=== PATIENT | male | born 1940 | race Caucasian/White ===

== ENCOUNTER 2017-07-25 08:00 | Outpatient (RCR) | payer MEDICARE, OTHER ==
[~2017-07-25] VITALS: Ht 190.5 cm; Wt 136.3 kg
[~2017-07-25 08:00] MED LIST: ASCO500T PO; ASP81 PO; ASPI81TA94 PO; AZIT-17 PO; BIPAP; BLOO-1511 XX; CHOL10005 PO; CHOL400C10 PO; DILT180C73 PO; HCTZ25 PO; INSU100I30 SQ; INSU100I35 SQ; LIS20 PO; LISI-355 PO; LOVA20TA99 PO; MET500 PO; METF-409 PO; METF-420 PO; MULT-820 PO; NOVOLINRPT IJ; NPH,100V12 SQ; NYST15CR33 TP; OMEG-96 PO; OXYB5POW PO; OXYB5TAB86 PO; OXYC-378 PO; OXYGENHOME INH; PEN1DIS. MC; PER PO; PIOG15TA66 PO; ROBC PO; ROSI2TAB11 PO; SIMV-44 PO; SIMV-49 PO; VITA-195 PO; WARF-12 PO; WARF2TAB74 PO; [UNRECOGNIZED DRUG - CODE] PO; [UNRECOGNIZED DRUG - CODE] SQ
--- NOTE | 2017-07-25 15:48 | EKG ---
FACILITY: [facility] [place] PATIENT NAME: SARI TOBIAS : [id number] MR: [id number] V: [id number] EXAM DATE: ORDERING PHYSICIAN: NOLAN PERRY TECHNOLOGIST: RAY Motta Reason : balanoposthitis Blood Pressure : / mmHG Vent. Rate : 057 BPM Atrial Rate : 416 BPM P-R Int : 000 ms QRS Dur : 128 ms QT Int : 466 ms P-R-T Axes : 000 -23 054 degrees QTc Int : 453 ms Appears to be sinus rhythm with first degree AV block Right bundle branch block Diffuse ST-T abnormalities Abnormal ECG No previous ECGs available Confirmed by ANIRUDH DE SANTIAGO ([id number]) on 07/27/2017 3:30:54 PM Referred By: VICKY Confirmed By:ANIRUDH DE SANTIAGO
--- NOTE | 2017-07-25 16:18 | RADIOLOGY IMAGING REPORT ---
[facility] PATIENT NAME: Peter Wray : 1940 MR: [id number] V: [id number] EXAM DATE: ORDERING PHYSICIAN: NOLAN PERRY TECHNOLOGIST: Location: [facility] Patient: Peter Wray : 1940 Visit/Account:[id number] Date of Sevice: 07/25/2017 Exam type: CHEST PA AND LAT History: HISTORY OF PROSTATE CA/ SLEEP APNEA WITH BIPAP AND O2 Comparison: October 09, 2007. Findings: There is mild hyperinflation lung saenz with flattening the hemidiaphragms. There is no evidence of acute appearing infiltrates, pleural effusions or pulmonary edema. Cardiac silhouette is normal in size. There are mild to moderate spondylotic changes of the thoracic spine. IMPRESSION: 1. Mild chronic hyperinflation of the lung saenz. No acute cardiopulmonary process is seen Report Dictated By: Miriam Cuadra MD at 07/25/2017 4:12 PM Report E-Signed By: Miriam Cuadra MD at 07/25/2017 4:13 PM WSN:[email or web address]
[2017-07-26 09:53] LABS: PLATELET COUNT, AUTOMATED 254 K/uL (150-450)
[2017-07-27] MEDS ORDERED: WARF5TAB23 PO (09:43)
[2017-08-01] MEDS ORDERED: LEVOFLOXACIN/D5W*500 MG/100 ML 100 ML IVPB ONE (07:55)
[2017-08-01] MEDS ORDERED: MIDAZOLAM 2 MG/2 ML VIAL IVP PRN (07:55)
[2017-08-01] MEDS ORDERED: LIDOCAINE/SOD BICARB 8.4% SYR ID ONE (07:55)
[2017-08-01] MEDS ORDERED: FAMOTIDINE 20 MG TAB PO ONE (07:55)
[2017-08-01] MEDS ORDERED: NORMOSOL R SOLN(*) 1000 ML BAG 1,000 ML IV PRN (07:55)
== END 2017-08-15 ==
LOC: LAB 08:00 → EDSTATUS 08-01 08:55
PROVIDERS: ATTEND Urology
DX: Z01.812 Encounter for preprocedural laboratory examination (principal); Z01.810 Encounter for preprocedural cardiovascular examination; Z01.818 Encounter for other preprocedural examination; R94.31 Abnormal electrocardiogram [ECG] [EKG]; R82.99 Other abnormal findings in urine
CPT/HCPCS: 36415; 71046; 81001; 82040; 82247; 82310; 82374; 82435; 82565; 82947; 84075; 84132; 84153; 84155; 84295; 84450; 84460; 84520; 85025; 87088; 93005

== ENCOUNTER → 2017-08-10 | Outpatient (CLI) | payer MEDICARE, OTHER ==
[~2017-08-10] MED LIST changes: +WARF5TAB23 PO
[2017-08-10 10:34] LABS: PLATELET COUNT, AUTOMATED 212 K/uL (150-450)
== END ==
LOC: LAB 10:07
PROVIDERS: ATTEND Internal Medicine
DX: I10 Essential (primary) hypertension (principal); E11.65 Type 2 diabetes mellitus with hyperglycemia; R35.0 Frequency of micturition; R39.15 Urgency of urination; R68.83 Chills (without fever); D72.829 Elevated white blood cell count, unspecified
CPT/HCPCS: 36415; 82040; 82247; 82310; 82374; 82435; 82565; 82947; 84075; 84132; 84155; 84295; 84450; 84460; 84520; 85025; 87088

== ENCOUNTER → 2017-08-16 | Outpatient (CLI) | payer MEDICARE, OTHER | LOC: LAB 14:04 | PROVIDERS: ATTEND Internal Medicine | DX: E11.65 Type 2 diabetes mellitus with hyperglycemia (principal); Z79.4 Long term (current) use of insulin | CPT/HCPCS: 36415; 82040; 82247; 82310; 82374; 82435; 82565; 82947; 84075; 84132; 84155; 84295; 84450; 84460; 84520 ==

== ENCOUNTER → 2017-08-22 | Outpatient (CLI) | payer MEDICARE, OTHER ==
--- NOTE | 2017-08-23 17:38 | RADIOLOGY IMAGING REPORT ---
FACILITY: [facility] PATIENT NAME: SARI TOBIAS : [id number] MR: [id number] V: [id number] EXAM DATE: [id number] ORDERING PHYSICIAN: NEELA PEREZ TECHNOLOGIST: Natacha Boyce EXAMINATION:TWO-DIMENSIONAL ECHOCARDIOGRAPH REASON:AFIB/JUNCTIONAL ESCAPE RHYTHM 2D Measurements (normal values in centimeters) LV endLV endRV endVent.LV PostAorticLeftPercent DiastolicSystolicDiastolicSeptumWallRootAtriumShortening (3.5-5.7)(0.9-2.6)(0.6-1.1)(0.6-1.1)(2.0-3.7)(1.9-4.0)(25-35%) [id number]% STROKE VOLUME: 84ml ESTIMATED EJECTION FRACTION:59% PARASTERNAL LONG AXIS: Overall left ventricular systolic function appears to be normal. Left ventricle appears to be the upper range of normal in size. The right ventricle is enlarged as well as the left atrium. There is mild concentric left ventricular thickening. Minimal mitral annular calcification. Aortic valve also appears to be mildly thickened. The right ventricle appears to contract normally. Color examination of the valves in this view reveals a trace of mitral & tricuspid & aortic insufficiency present. PARASTERNAL SHORT AXIS: Again overall left ventricular systolic function appears to be normal. No specific wall motion abnormalities are noted. Aortic valve is trileaflet in configuration with aortic sclerosis. Color examination of the pulmonic valve reveals a trace of pulmonic insufficiency. There is also a trace of aortic insufficiency present. Aortic valve area was measured at 2.5cm2 with a mean pressure gradient across the valve of 11mm Hg & a dimensionless index of .5. The tricuspid regurgitation Vmax measured 1.9cm/sec. Left atrial volume is increased at 36ml/m2. The right atrial volume is measured within normal ranges at 19ml/m2. Borderline concentric left ventricular thickening is noted. APICAL FOUR AND TWO CHAMBER: SUBCOSTAL VIEW: No pericardial effusion was noted. No atrioseptal or ventriculoseptal defects were appreciated. Patient appears to be in sinus rhythm throughout this examination. Doppler examination of the mitral valve in diastole does reveal a normal pattern but there is reversal with Valsalva maneuver. The medial & lateral E Prime velocities are decreased. OVERALL IMPRESSION: 1. Normal left ventricular ejection fraction of approximately 59% with a mild to borderline moderate decrease in diastolic function. 2. Mild concentric left ventricular thickening but no evidence for any outflow tract obstruction. 3. Borderline enlargement of the left ventricle, mild enlargement of the right ventricle & moderate enlargement of the left atrium. The right atrium appears to be normal in size. 4. Aortic sclerosis but no stenosis. There is a trace of aortic insufficiency. 5. Trace of mitral, tricuspid & pulmonic insufficiency with estimated right ventricular systolic pressures within normal ranges at 24mm Hg. The mitral valve area was measured within normal ranges at 2.6cm2 wnl. There is minimal mitral annular calcification. Dictated by: Hernán Judge M.D. on 08/23/2017 at 10:04 Transcribed by: VINEET on 08/23/2017 at 15:21 Approved by: Hernán Judge M.D. on 08/23/2017 at 17:36 [facility]
== END ==
LOC: US 08-02 01:50
PROVIDERS: ATTEND Internal Medicine
DX: I50.30 Unspecified diastolic (congestive) heart failure (principal); I51.7 Cardiomegaly; I25.10 Atherosclerotic heart disease of native coronary artery without angina pectoris; I35.1 Nonrheumatic aortic (valve) insufficiency; I34.0 Nonrheumatic mitral (valve) insufficiency; I07.1 Rheumatic tricuspid insufficiency; I37.1 Nonrheumatic pulmonary valve insufficiency
CPT/HCPCS: 93306

== ENCOUNTER → 2017-08-24 | Outpatient (CLI) | payer MEDICARE, OTHER | LOC: LAB 13:32 | PROVIDERS: ATTEND Internal Medicine | DX: E11.65 Type 2 diabetes mellitus with hyperglycemia (principal) | CPT/HCPCS: 36415; 82040; 82247; 82310; 82374; 82435; 82565; 82947; 84075; 84132; 84155; 84295; 84450; 84460; 84520 ==

== ENCOUNTER → 2017-08-31 | Outpatient (CLI) | payer MEDICARE, OTHER ==
--- NOTE | 2017-08-31 09:35 | RADIOLOGY IMAGING REPORT ---
FACILITY: [facility] [place] PATIENT NAME: Peter Wray : 1940 MR: [id number] V: [id number] EXAM DATE: ORDERING PHYSICIAN: NEELA PEREZ TECHNOLOGIST: Location: [facility] Patient: Peter Wray : 1940 Visit/Account:[id number] Date of Sevice: 08/31/2017 LIVER HISTORY: elevated LFT COMPARISON: None. FINDINGS: Gallbladder: There are multiple mobile gallstones present. The gallbladder wall measures 2.8 mm in t hickness. There is a positive Travis sign by technologist notation Liver: Liver is enlarged measuring 20.7 cm in length. There is increased echogenicity throughout tony er which can be seen with fatty infiltration or other infiltrative process. This slightly lobular co ntour to the liver Common duct: Normal, 5.4 mm diameter. Pancreas: Appears heterogeneous and is partially obscured by bowel gas Right kidney: Right kidney measures 14.4 cm in length with no evidence of hydronephrosis. Is a 3.1 c m cyst along the lateral aspect Upper abdominal aorta and IVC: Patent. Ascites: None visualized. IMPRESSION: Hepatomegaly with increased echogenicity throughout liver which can be seen with fatty infiltration o r other infiltrative process Cholelithiasis and a positive Travis sign although no evidence of gallbladder wall thickening or bili teisha ductal dilatation 3.1 cm right renal cyst Pancreas appears slightly heterogeneous Report Dictated By: Miriam Cuadra MD at 08/31/2017 9:27 AM Report E-Signed By: Miriam Cuadra MD at 08/31/2017 9:31 AM WSN:[email or web address]
== END ==
LOC: US 01:05
PROVIDERS: ATTEND Internal Medicine
DX: K80.20 Calculus of gallbladder without cholecystitis without obstruction (principal); R19.8 Other specified symptoms and signs involving the digestive system and abdomen; K76.0 Fatty (change of) liver, not elsewhere classified; R16.0 Hepatomegaly, not elsewhere classified; Q61.01 Congenital single renal cyst
CPT/HCPCS: 76705

== ENCOUNTER → 2017-10-24 | Outpatient (CLI) | payer MEDICARE, OTHER ==
[~2017-10-24] MED LIST changes: +NOVOLINRPT SUBQ; +PIOG15TA2 PO; -PIOG15TA66 PO
[2017-10-24 14:13] LABS: PLATELET COUNT, AUTOMATED 215 K/uL (150-450)
== END ==
LOC: LAB 13:53
PROVIDERS: ATTEND Pharmacist Pharmacotherapy
DX: E11.65 Type 2 diabetes mellitus with hyperglycemia (principal); M79.1 Myalgia; I10 Essential (primary) hypertension
CPT/HCPCS: 36415; 82040; 82247; 82310; 82374; 82435; 82565; 82947; 83036; 84075; 84132; 84155; 84295; 84450; 84460; 84520; 85025; 86140

== ENCOUNTER → 2017-11-30 | Outpatient (CLI) | payer MEDICARE, OTHER ==
[~2017-11-30] MED LIST changes: +BLOO-1511 MC; +ERGO500037 PO; +METF-421 PO; -PIOG15TA2 PO; +PIOG15TA67 PO
== END ==
LOC: LAB 13:55
PROVIDERS: ATTEND Pharmacist Pharmacotherapy
DX: I10 Essential (primary) hypertension (principal)
CPT/HCPCS: 36415; 82310; 82374; 82435; 82565; 82947; 84132; 84295; 84520

== ENCOUNTER → 2017-12-19 | Outpatient (CLI) | payer MEDICARE, OTHER | LOC: LAB 09:47 | PROVIDERS: ATTEND Urology | DX: N47.6 Balanoposthitis (principal); R82.79 Other abnormal findings on microbiological examination of urine | CPT/HCPCS: 81001; 87088 ==

== ENCOUNTER 2017-12-22 01:51 | Observation (INO) | payer MEDICARE, OTHER ==
--- NOTE | 2017-12-21 18:54 | HISTORY AND PHYSICAL ---
DATE OF ADMISSION: December 22, 2017 CHIEF COMPLAINT Phimosis and irritation of foreskin. HISTORY OF PRESENT ILLNESS Patient is a 77-year-old white male who presented to the Urology Clinic with a several month history of increasing irritation at the foreskin with difficulty retracting and associated cracking and bleeding. Physical examination in the office revealed a moderately tight phimotic foreskin with some BXO changes around the end of the foreskin as well as some erythematous changes to the glans. The patient apparently has failed topical therapy over the past several months from another physician and desires circumcision. Also discussed we may perform a biopsy of any abnormal areas to rule out CIS. PAST MEDICAL HISTORY * History of prostate cancer. * AFib with right bundle-branch block. * Type 2 diabetes. * Hypertension. * Obstructive sleep apnea. PAST SURGICAL HISTORY * Radical retrograde prostatectomy. * Inflatable penis prosthesis. * Total knee replacement. * L-spine discectomy. * Lap-Band surgery. ALLERGIES PENICILLIN and SULFA. CURRENT MEDICATIONS * Diltiazem. * Multivitamins. * Insulin. * Lisinopril. * Hydrochlorothiazide. * Metformin. * Oxygen. * Warfarin, which has been held for five days. SOCIAL HISTORY Patient lives in [place], [place], and is single. He denies illicit drug use. FAMILY HISTORY Noncontributory. REVIEW OF SYSTEMS Patient denies chest pain, shortness of breath, nausea, vomiting, fever, chills , gross hematuria, or liver disease. PHYSICAL EXAMINATION GENERAL: Patient is a well-developed, slightly obese, white male in no acute distress. HEENT: Normocephalic, atraumatic. CHEST: Clear to auscultation bilaterally. CARDIOVASCULAR: Regular rate and rhythm. ABDOMINAL: Soft, nontender. No masses are palpated. GENITOURINARY: Deferred to the OR. EXTREMITIES: Without clubbing, cyanosis, or edema. NEUROLOGIC: Nonfocal. IMPRESSION A 77-year-old white male with history of prolonged irritation of the foreskin with phimosis. PLAN We will perform adult circumcision with possible biopsy. [facility]
[2017-12-22] VITALS (13 sets, daily range): BP systolic 122–155; BP diastolic 63–96; Ht 190.5 cm; Wt 137.6 kg
[~2017-12-22] VITALS: Ht 190.5 cm; Wt 137.6 kg
[2017-12-22 06:20] LABS: PLATELET COUNT, AUTOMATED 209 K/uL (150-450)
[2017-12-22 06:45] LABS: INR 1.11
[2017-12-22] MEDS ORDERED: NORMOSOL R SOLN(*) 1000 ML BAG 1,000 ML IV PRN (06:45)
[2017-12-22] MEDS ORDERED: LEVOFLOXACIN/D5W*500 MG/100 ML 100 ML IVPB ONE (06:45)
[2017-12-22] MEDS ORDERED: LIDOCAINE/SOD BICARB 8.4% SYR ID ONE (06:45)
[2017-12-22] MEDS ORDERED: FAMOTIDINE 20 MG TAB PO ONE (06:45)
[2017-12-22] MEDS ORDERED: MIDAZOLAM 2 MG/2 ML VIAL IVP PRN (06:45)
[2017-12-22] MEDS ORDERED: ROPIVACAINE 0.2% 20 ML VIAL ONE (07:38)
[2017-12-22] MEDS ORDERED: BACITRACIN OINT 15 GM TUBE TP ONE (07:38)
[2017-12-22] MEDS ORDERED: fentaNYL CITR 100 MCG/2 ML AMP ONE ×3 (07:46→09:19)
[2017-12-22] MEDS ORDERED: LIDOCAINE MPF 1% 5 ML VIAL ONE (07:47)
[2017-12-22] MEDS ORDERED: PROPOFOL EMUL(*) 10MG/ML 20 ML 40 ML ONE (07:47)
[2017-12-22] MEDS ORDERED: ONDANSETRON 4 MG/2 ML VIAL ONE (07:47)
[2017-12-22] MEDS ORDERED: MINERAL OIL LIGHT 10 ML VIAL ONE (08:51)
[2017-12-22] MEDS ORDERED: KETOROLAC 30 MG/ML VIAL ONE (08:53)
[2017-12-22] MEDS ORDERED: IBUPROFEN 600 MG TAB PO PRN (10:00)
[2017-12-22] MEDS ORDERED: ZOLPIDEM TARTRATE 5 MG TAB PO PRN (10:00)
[2017-12-22] MEDS ORDERED: MAG HYD/AL HYD/SIMETH 30ML UDC PO PRN (10:00)
[2017-12-22] MEDS ORDERED: INSULIN HUM REG 100 UN/ML 3 ML VIAL SC PRN (10:45)
--- NOTE | 2017-12-22 11:15 | Hospitalist Consultation ---
History of Present Illness Requesting Physician Dr. Ambriz Reason for Consult Medical Management Chief Complaint s/p circumcision History of Present Illness He was admitted s/p circumcision. It is reported the surgery went well and without complication. History Problems: (1) Essential hypertension Status: Chronic (2) Uncontrolled type 2 diabetes mellitus with insulin therapy Status: Chronic (3) Atrial fibrillation by electrocardiogram Status: Chronic Home Meds Active Scripts Metformin Hcl (METFORMIN HCL) 1,000 Mg Tablet, 1 TAB PO BID, #180 TAB 5 Refills Prov:BORIS ABDI PHARMD 12/01/17 Insulin Regular, Human (NOVOLIN R) 100 Unit/1 Ml Vial, 21 UNIT SUBQ TID, #2 VIAL 11 Refills Inject 21 units approximately 30 minutes prior to each meal. Take three times daily. Prov:BORIS ABDI PHARMD 11/30/17 Nph, Human Insulin Isophane (NOVOLIN N) 100 Unit/1 Ml Vial, 148 UNIT SQ QDAY, # 5 VIAL 11 Refills 86 Units sq q am, 62 Units sq q pm Prov:BORIS ABDI PHARMD 11/30/17 Blood Sugar Diagnostic (GLUCOSE TEST STRIP) 1 Each Strip, 1 STRIP MC QDAY, #90 STRIP 4 Refills Prov:NEELA PEREZ MD 11/28/17 Ergocalciferol (Vitamin D2) (VITAMIN D2) 50,000 Unit Capsule, 1 CAP PO QWEEK, # 8 CAPSULE 0 Refills Prov:NEELA PEREZ MD 11/01/17 Warfarin Sodium (WARFARIN SODIUM) 5 Mg Tablet, 1.5 TAB PO QDAY, #45 TAB 11 Refills Take 1.5 tablets daily or as instructed based on INR. Prov:NEELA PEREZ MD 10/26/17 Lisinopril/Hydrochlorothiazide (LISINOPRIL-HCTZ 20-25 MG TAB) 1 Each Tablet, 0.5 TAB PO QAM, #90 TAB 4 Refills Prov:NEELA PEREZ MD 10/26/17 Diltiazem Hcl (DILTIAZEM 24HR ER) 180 Mg Cap.er.24h, 1 CAP PO QDAY, #90 CAP 4 Refills Prov:NEELA PEREZ MD 03/24/17 Syring W-Ndl,Disp,Insul,0.3ML (INSULIN SYRINGE) 1 Each Disp.syrin, 1 EACH SQ QDAY, #2 12 Refills Use twice daily with insulin injections. Patient needs 1cc syringes. 29-31 gauge acceptable. Prov:BORIS ABDI PHARMD 12/25/14 Reported Medications Oxygen (OXYGEN) Inha, 4 L INH HS, L with Bi-PAP 06/18/15 Discontinued Reported Medications Bipap Home (BIPAP HOME) Inha, HS with Bi-PAP 06/18/15 Discontinued Scripts Lovastatin (LOVASTATIN) 20 Mg Tablet, 1 TAB PO QDAY, #90 TAB 3 Refills Prov:NEELA PEREZ MD 05/25/17 Allergies: Coded Allergies: Penicillins (Verified Allergy, Intermediate, ITCHING FEET AND PALMS OF HANDS, 12/16/17) Sulfa (Sulfonamide Antibiotics) (Unverified Allergy, Intermediate, RASH, ) Patient History: Cervical cancer MOTHER (Bowel obstruction), , Age:81 Diabetes mellitus (DM) Sister (Diabetes Mellitus, Colon Cancer), , Age:75 FH: bowel obstruction MOTHER (Bowel obstruction), , Age:81 FH: breast cancer MOTHER (Bowel obstruction), , Age:81 Sister (Diabetes Mellitus, Colon Cancer), , Age:75 FH: cancer Sister (Diabetes Mellitus, Colon Cancer), , Age:75, Onset:74 ( metastatic) FH: colon cancer FH: liver cancer Sister FH: lung cancer Sister FH: myocardial infarction FATHER (DE), , Age:64 FH: skin cancer Hx Smoking: Yes (AGE 20-31 SMOKED AND CHEWED) Smoking Status: Former Smoker Exposure to Second Hand Smoke?: Yes Caffeine Intake: Coffee Caffeine/Cups Per Day: 1-2 Hx Alcohol Use: No Hx Substance Use Disorder: No Social Drug Use: Never History of IV Drug Use: No Review of Systems All Systems Reviewed/Normal: Yes, Except as Noted Exam Vital Signs Vital Signs Date Time Temp Pulse Resp B/P (MAP) Pulse Ox O2 Delivery O2 Flow Rate FiO2 12/22/17 10:00 72 20 93 12/22/17 06:20 Nasal Cannula 2.0 12/22/17 06:16 97.7 155/91 (112) General Appearance: Alert, Awake, No Acute Distress, Afebrile Neuro: No Gross deficits Cardiovascular: Regular Rate and Rhythm Respiratory: No Respiratory Distress, Clear to Auscultation GI: Abd Soft and Non-Tender Psych: Alert & Oriented X3, Appropriate Mood & Affect Medical Decision Making Data Points Result Diagram: 12/22/1760412/22/17604 Assessment and Plan Problems: (1) Uncontrolled type 2 diabetes mellitus with insulin therapy Status: Chronic Assessment & Plan: He is on chronic treatment with Metformin, NPH insulin and Regular insulin. His metformin will be held at this time. He has been restarted on half his NPH insulin dose and SS insulin level #2, along with ADA diet and AC /HS blood glucoses. (2) Atrial fibrillation by electrocardiogram Status: Chronic Assessment & Plan: He is on chronic treatment with diltiazem and warfarin. The warfarin should be restarted on 12/24 per patient. His diltiazem has been restarted with hold parameters. (3) Essential hypertension Status: Chronic Assessment & Plan: He is on chronic treatment with lisinopril and hydrochlorothiazide. His lisinopril has been restarted with hold parameters. Venous Thromboembolism Antithrombotics Is Pt On Any Antithrombotics?: No Prophylaxis Tx Contraindicated Pharmacological Contraindicati: Surgical Contraindication CHARLES CATALAN SENIOR QA ENGINEER Dec 22, 2017 11:15
--- NOTE | 2017-12-22 11:23 | OPERATIVE REPORT 1 ---
EVENT DATE: December 22, 2017 SURGEON: David Ambriz M.D. ANESTHESIOLOGIST: Aashish Finnegan M.D. ANESTHESIA: General. PREOPERATIVE DIAGNOSIS Phimosis with balanoposthitis. POSTOPERATIVE DIAGNOSIS Phimosis with balanoposthitis. PROCEDURE PERFORMED Adult circumcision with frenuloplasty. ESTIMATED BLOOD LOSS 5 mL. IV FLUIDS Crystalloids. DRAINS None. PATHOLOGY Foreskin for permanent analysis to pathology. COMPLICATIONS None. CONDITION The patient was taken to the recovery room awake and in stable condition. STATEMENT OF MEDICAL NECESSITY The patient is a 69-year-old white male with several medical issues who is status post penile prosthesis many yeas ago who recently developed increasing difficulty retracting his foreskin with irritation, cracking and bleeding. He has tried topical treatments without success and is now being brought to the operating room for planned adult circumcision with possible biopsy. Surgical risks and benefits were explained including bleeding, infection, recurrent scar formation, need for a secondary procedure and shortening of penile foreskin. DESCRIPTION OF PROCEDURE The patient was brought to the operating room. After general anesthetic was obtained, he was placed supine on the operating room table. The foreskin was manually retracted over the glans with significant difficulty. The inner table of the foreskin was whitish in appearance, consistent with BXO. He had extensive adhesions to the glans around the marshall and approximately 75% of the inner table of the foreskin. These were released manually. He also had significant adhesions around the ventral aspect of the frenulum, which were also released. At this point, a circumferential skin incision was made approximately 3-4 mm from the coronal sulcus with #15 blade knife. Following this, the foreskin was retracted distal to the normal anatomic position and the outer table also incised with the knife. These incisions were connected on the dorsal aspect and then the foreskin was removed circumferentially with electrocautery. Small bleeding vessels at the skin edge were controlled with electrocautery. The wound was irrigated with copious amounts of gentamicin irrigation. At this point, a frenuloplasty was performed with interrupted 4-0 Chromic to reconstruct a penile frenulum for a length of approximately 1 cm. The inner and outer tables of the peeled skin were then sutured with interrupted 4-0 Chromic stitches. Following this, antibiotic ointment was placed along the incision and glans and a roll of gauze was placed around the penis at the conclusion of the procedure. A penile block was not given secondary to his inflatable penile prosthesis. The patient was awakened in the operating room and taken to the recovery area in stable condition. The plan will be to keep the patient 23 hours secondary to his inability to have a ride or someone stay with him. We will plan to discharge him home in the morning on Levaquin, [place], Colace and Neosporin ointment. We will plan to see in Urology Clinic in four to six weeks. PAMELA
[2017-12-22] MEDS: NEOMYCIN/POLYMYX/BACITR OINT 1 PACKET TP SCH (20:51)
[2017-12-22] MEDS: DOCUSATE SODIUM 100 MG CAP PO SCH (20:52)
[2017-12-22] MEDS ORDERED: INSULIN HUM ISO(NPH) 100 UN/ML 3 ML VIAL SUBQ SCH (21:00)
[2017-12-23 00:47] VITALS: BP 157/74
[2017-12-23 03:04] VITALS: BP 128/65
[2017-12-23] MEDS ORDERED: LEVOFLOXACIN 500 MG TAB PO SCH (07:00)
[2017-12-23 08:20] VITALS: BP 147/81
[2017-12-23] MEDS: DOCUSATE SODIUM 100 MG CAP PO SCH (08:26)
[2017-12-23] MEDS ORDERED: DILTIAZEM CD 180 MG CAPCR PO SCH (09:00)
[2017-12-23] MEDS ORDERED: INSULIN HUM ISO(NPH) 100 UN/ML 3 ML VIAL SUBQ SCH (09:00)
[2017-12-23] MEDS ORDERED: LISINOPRIL 10 MG TAB PO SCH (09:00)
[2017-12-23] MEDS: NEOMYCIN/POLYMYX/BACITR OINT 1 PACKET TP SCH (09:20)
[2017-12-23] MEDS ORDERED: [UNRECOGNIZED DRUG - CODE] ASDIRECTED (09:32)
[2017-12-23] MEDS ORDERED: DOCU-416 PO (09:35)
[2017-12-23] MEDS ORDERED: HYDR-4309 PO (09:48)
[2017-12-23] MEDS ORDERED: LEVO-85 PO (09:49)
== END 2017-12-23 09:50 | disposition home or self-care (01) ==
LOC: OR 01:51 → MED 10:22
PROVIDERS: ADMIT Urology; ATTEND Urology
DX: N47.1 Phimosis (principal); E11.9 Type 2 diabetes mellitus without complications; I10 Essential (primary) hypertension; Z85.46 Personal history of malignant neoplasm of prostate; I48.2 Chronic atrial fibrillation; Z79.01 Long term (current) use of anticoagulants
CPT/HCPCS: 36415; 36416; 54161; 82948; 84153; 85025; 85610; 85730; 88305; 93005; 96372; A9270; G0378; J1815; J1885; J1956; J2001; J2405; J2704; J2795; J3010; 82040; 82247; 82310; 82374; 82435; 82565; 82947; 84075; 84132; 84155; 84295; 84450; 84460; 84520

== ENCOUNTER → 2018-02-21 | Outpatient (CLI) | payer MEDICARE, OTHER ==
[2017-12-22 16:33] VITALS: BMI 37.9
[~2018-02-21] MED LIST changes: +CHOL200022 PO; +DOCU-416 PO; +HYDR-4309 PO; +LEVO-85 PO; +[UNRECOGNIZED DRUG - CODE] ASDIRECTED
[2018-02-21 15:25] LABS: PLATELET COUNT, AUTOMATED 255 K/uL (150-450)
== END ==
LOC: LAB 14:58
PROVIDERS: ATTEND Internal Medicine
DX: R19.7 Diarrhea, unspecified (principal)
CPT/HCPCS: 36415; 82040; 82247; 82310; 82374; 82435; 82565; 82947; 84075; 84132; 84155; 84295; 84450; 84460; 84520; 85025

== ENCOUNTER 2018-06-20 14:55 | Inpatient (IN) | payer MEDICARE, OTHER ==
[~2018-06-20] VITALS: Ht 190.5 cm; Wt 127.1 kg
[~2018-06-20 14:55] MED LIST changes: +CHOL200018 PO; -CHOL200022 PO; -HYDR-4309 PO; +HYDR-653 PO; -METF-421 PO; +METF-452 PO; +WARF2.5T62 PO
[2018-06-20] MEDS ORDERED: BISACODYL 10 MG SUPP PR PRN (15:24)
[2018-06-20] MEDS ORDERED: ACETAMINOPHEN 325 MG TAB PO PRN (15:24)
[2018-06-20] MEDS ORDERED: WARFARIN SOD 5 MG TAB PO SCH (15:24)
[2018-06-20] MEDS ORDERED: GUAIFENESIN/DEXTROMETHORPHAN 5 ML PO PRN (15:24)
[2018-06-20 15:40] VITALS: BP 133/62
--- NOTE | 2018-06-20 16:28 | Consultant Pharmacy Review ---
Store Receiving Specialist Review Medication Review Do All Mecications have a Diag: Yes Pneumococcal Vaccine HX Pneumo Vac ([id number]): No (If patient desires, he may receive the pnue mococcal and influenza vaccines.) HX Pneumo Vac (Pneumovax): No Comments Regarding the Review Labs: INR as ordered while on Coumadin; periodic HgA1c. SUMAN JACOBO Jun 20, 2018 16:28
[2018-06-20] MEDS: metFORMIN HCL 500 MG TAB PO SCH (17:35)
[2018-06-20] MEDS: DOCUSATE SODIUM 100 MG CAP PO SCH (21:00)
[2018-06-21 06:33] LABS: INR 1.56
[2018-06-21 08:30] VITALS: BP 131/69
[2018-06-21] MEDS: CHOLECALCIFEROL 1000 UNIT TAB PO SCH (08:43)
[2018-06-21] MEDS: metFORMIN HCL 500 MG TAB PO SCH ×2 (08:43→16:51)
[2018-06-21] MEDS: POLYETHYLENE GLYCOL 17 GM PKT PO SCH (08:43)
[2018-06-21] MEDS: TAMSULOSIN HCL 0.4 MG CAP PO SCH (08:43)
[2018-06-21] MEDS: DOCUSATE SODIUM 100 MG CAP PO SCH ×2 (08:43→20:35)
[2018-06-21 11:52] VITALS: Ht 190.5 cm; Wt 127.1 kg
--- NOTE | 2018-06-21 12:12 | Medical Nutrition Therapy ---
Nutrition Anthropometrics Height (Inches): 75.00 Height (Calculated Centimeters: 190.123882 Weight (Pounds): 283 Weight (Calculated Kilograms): 128.548 BMI: 35.4 Lawrence Nutrition Score: Adequate Lawrence Nutrition Risk Score: 18 Dietary Referral Nutrition Risk Factors: Special Diet Nutrition Risk Comment: needs education on ADA diet Physical Findings Physical Appearance: Obese BMI 30-39 Skin Appearance Skin Appearance: Edema Edema Location Modifier: Left Edema Location: Foot Type of Edema: Degree of Edema: 1+ Gastrointestinal Symptoms GI Symtoms: Tube Present: Bowel Sounds: Recent Bowel Pattern: Stool Characteristics: Nutrition/Food History Non-compliant W/Diet Good Nutritional Diagnosis Nutritional Risk Acuity 4: Good Appetite Past Medical History: T2DM, vit d deficiency, morbid obesity, HTN, hyperlipidemia, gastric banding, bilateral knee replacemenbt, a-fib Nutritional Acuity: 4-Low Nutrition Diagnosis: Nutr. Knowledge Deficit Nutrition Etiology: Inappropriate Food Choice Nutrition Problem/Etiology/Sym: Food and Nutrition Related Knowledge Deficit as related to inappropriate food choices AEB weight related comorbidities and verbalizes inaccurate or incomplete food/nutrition information. Energy Requirement: 2370 ([facility] Je[facility]: IBW BW X 1.4) Protein Requirement: 71 (IBW Kg X .8) Diet Type: Diabetic Nutrition Intervention: Cont diet as ordered Drug: Warfarin Do Not Serve Any of the Follow: Broccoli, Brussel Sprouts, Spinach, Ashby Lettuce, Cranberry Juice Nutrition Monitoring & Eval Nutrition Goals: Eat 50-100% Meal RD Patient Assessment Time: [address] Assessment Type: RD Assessment Patient Nutrition Acuity: 1-High Follow Up Date: Jun 26, 2018 Nutritional Comment: 06/21/18 Pt transferred to [facility] from Med/Surg. Orginally admitted for Hypoglycemia and UTI. Glu 119, Alb 3.3, Na 134. Class II obesity with BMI of 35.4. Metformin 1000 mg BID for diabetes control. Receiving Diabetes diet with 100% meal consumption on Med/Surg. Follow labs, intake, etc. -YASHIRA MCGILL Jun 21, 2018 12:11
[2018-06-21] MEDS: WARFARIN SOD 5 MG TAB PO SCH (13:20)
[2018-06-21 15:35] VITALS: BP 128/64
[2018-06-22 06:26] LABS: INR 1.48
[2018-06-22 08:30] VITALS: BP 147/83
[2018-06-22] MEDS: DOCUSATE SODIUM 100 MG CAP PO SCH ×2 (08:33→20:39)
[2018-06-22] MEDS: POLYETHYLENE GLYCOL 17 GM PKT PO SCH (08:33)
[2018-06-22] MEDS: TAMSULOSIN HCL 0.4 MG CAP PO SCH (08:33)
[2018-06-22] MEDS: CHOLECALCIFEROL 1000 UNIT TAB PO SCH (08:33)
[2018-06-22] MEDS: metFORMIN HCL 500 MG TAB PO SCH ×2 (08:34→16:20)
--- NOTE | 2018-06-22 12:46 | NUR ---
Occupational Therapy Impression Co-evaluation completed with PT. Please refer to reports for details regarding plan of care and goals. Occupational Therapy Goals 1. Pt. to perform dressing activities with Mod I. 2. Pt. to perform showering activities with Min A. 3. Pt. to improve Pennie Index score by 2 points. 4. Pt. to perform toileting activities with Mod I. 5. Pt. to perform grooming activities with I. Patient's Goal
--- NOTE | 2018-06-22 12:54 | OT ECF NOTE ---
Type of Note: Initial Note Primary Medical Diagnosis: UTI, A-fib Occupational Therapy Evaluation Date: 06-21-18 SUBJECTIVE: Prior Hospitalization: [facility] medical floor from 06-15-18 to 06-20-18. Prior Level of Function: Pt. was I with all ADL/IADL activities. Prior Living Status: Bi-level house Alone Community Services: Independent Home Accessibility: Two story home Equipment Owned: walking stick x2, shower chair Medical Complications/Past Medical History: Please refer to reports for details. Psychosocial Support: unknown Pain Scale (0-10): 07/06 OBJECTIVE: Strength: MMT: Right Left Shoulder Flexion [*] [*] Elbow Flexion [*] [*] Wrist Extension [*] [*] Oil Developer [*] [*] (5= normal, 4= good, 3= fair, 2= poor, 1= trace) ROM: Both upper extremities WFL Functional Transfer: Assistive Device: Gait belt Standard walker Transfer Ability: CGA ADL: Upper body dressing: Assistive device: Upper body dressing ability: Lower body dressing: Assistive device: Lower body dressing ability: Toileting: Assistive device: Raised toilet seat Toileting ability: Modified Ind/AE Grooming/hygiene: SBA Assistive device: Grooming ability: Bathing: NT Assistive device: Bathing ability: Standardized Assessment: Pennie Index of Activities of Daily Living- Pt. scored a 13/20 on this index upon initial evaluation on 06-11-18. ASSESSMENT: Pt. is a 78 year old male who was admitted to [facility] medical floor on 06-15-18 following a fall at home. Pt. was diagnosed with a UTI and new onset A- fib. Pt. resides alone, 5 miles outside of [place], in a two story home that will not currently allow for a walker to fit in due to the house being so cluttered. Pt. is admitted to [facility] for continued rehab to increase independence in ADL as well as increase strength/ endurance with ambulation activities. Pt. is also O2 dependent during the day and will require education on how to safely manage O2 equipment during all activities. Problem List/Current Limitations: Pain Decreased activity osman Generalized weakness Short Term Goals: 1. Pt. to perform dressing activities with Mod I. 2. Pt. to perform showering activities with Min A. 3. Pt. to improve Pennie Index score by 2 points. 4. Pt. to perform toileting activities with Mod I. 5. Pt. to perform grooming activities with I. Halfway Goals: Return home. Patient Goals: Return home Rehabilitation Prognosis: Fair Barriers to Discharge: Resides alone, advanced age PLAN: The patient will benefit from skilled occupational therapy services 5 times per week for 2 weeks including: Ther ex ADL training Safety training Ther act IADL training Transfer training Adaptive equip training Bed mobility Thank you for this referral. If you have any questions, concerns, or comments about this report or plan, please contact me at . Erinn Curry, OTR/L Occupational Therapist PAMELA
[2018-06-22] MEDS: WARFARIN SOD 5 MG TAB PO SCH (13:03)
[2018-06-22] MEDS ORDERED: WARFARIN SOD 7.5 MG TAB PO SCH (13:30)
[2018-06-22] MEDS ORDERED: CALCIUM CARBONATE 500 MG CHEW PO PRN (13:30)
--- NOTE | 2018-06-22 13:44 | NUR ---
Physical Therapy Impression Emphasis on LE ther. ex to improve general LE strength, specifically B quad control to reduce chances of knee buckling with fatigue. Pt also with significant decreased balance increasing his fall risk. Static standing balance with intermittent UE support on FWW requiring Min A for safety. Cont. with POC. Physical Therapy Goals Patient's Goals
[2018-06-22] MEDS ORDERED: WARFARIN SOD 2.5 MG TAB PO ONE (13:45)
[2018-06-22] MEDS: MAGNESIUM HYDROXIDE* 30ML UDCP PO PRN (14:46)
--- NOTE | 2018-06-22 15:08 | NUR ---
Occupational Therapy Impression Pt ambulated 3x75ft with RW and close w/c follow. SpO2 >90% on room air. (I) donning/doffing socks. CGA toilet transfer. Declined further ADLs. Occupational Therapy Goals 1. Pt. to perform dressing activities with Mod I. 2. Pt. to perform showering activities with Min A. 3. Pt. to improve Pennie Index score by 2 points. 4. Pt. to perform toileting activities with Mod I. 5. Pt. to perform grooming activities with I. Patient's Goal
[2018-06-22 16:10] VITALS: BP 146/77
[2018-06-23 06:55] LABS: INR 1.66
[2018-06-23 08:00] VITALS: BP 158/94
[2018-06-23] MEDS: DOCUSATE SODIUM 100 MG CAP PO SCH ×2 (08:52→20:55)
[2018-06-23] MEDS: metFORMIN HCL 500 MG TAB PO SCH ×2 (08:52→16:41)
[2018-06-23] MEDS: CHOLECALCIFEROL 1000 UNIT TAB PO SCH (08:52)
[2018-06-23] MEDS: POLYETHYLENE GLYCOL 17 GM PKT PO SCH (08:52)
[2018-06-23] MEDS: TAMSULOSIN HCL 0.4 MG CAP PO SCH (08:52)
--- NOTE | 2018-06-23 09:05 | NUR ---
Occupational Therapy Impression Pt alert and agreeable to OT tx. Declined shower and ADLs at this time. Agreeable to UB HEP and ambulation to improve strength/endurance. Continue POC. Occupational Therapy Goals 1. Pt. to perform dressing activities with Mod I. 2. Pt. to perform showering activities with Min A. 3. Pt. to improve Pennie Index score by 2 points. 4. Pt. to perform toileting activities with Mod I. 5. Pt. to perform grooming activities with I. Patient's Goal
[2018-06-23] MEDS: WARFARIN SOD 5 MG TAB PO SCH (13:21)
[2018-06-23 15:45] VITALS: BP 125/74
--- NOTE | 2018-06-23 16:42 | NUR ---
Physical Therapy Impression Pt requires VC's for FWW mgmt and safety with stand pivot transfers. Pt tolerated ther. ex well. SpO2 remaining >92% on 1.0 L O2 with all activity. No instances of knee buckling this date. Cont. with POC. Physical Therapy Goals Patient's Goals
[2018-06-24 07:05] LABS: INR 1.9
[2018-06-24 07:30] VITALS: BP 140/70
[2018-06-24] MEDS: DOCUSATE SODIUM 100 MG CAP PO SCH ×2 (08:33→20:39)
[2018-06-24] MEDS: TAMSULOSIN HCL 0.4 MG CAP PO SCH (08:33)
[2018-06-24] MEDS: CHOLECALCIFEROL 1000 UNIT TAB PO SCH (08:33)
[2018-06-24] MEDS: MAGNESIUM HYDROXIDE* 30ML UDCP PO PRN (08:33)
[2018-06-24] MEDS: POLYETHYLENE GLYCOL 17 GM PKT PO SCH (08:33)
[2018-06-24] MEDS: metFORMIN HCL 500 MG TAB PO SCH ×2 (08:33→17:17)
[2018-06-24] MEDS: WARFARIN SOD 5 MG TAB PO SCH (12:58)
[2018-06-24 16:03] VITALS: BP 125/69
[2018-06-25 06:45] LABS: PLATELET COUNT, AUTOMATED 214 K/uL (150-450)
[2018-06-25 07:06] LABS: INR 1.87
[2018-06-25 07:30] VITALS: BP 135/67
[2018-06-25] MEDS: DOCUSATE SODIUM 100 MG CAP PO SCH ×2 (08:52→21:12)
[2018-06-25] MEDS: TAMSULOSIN HCL 0.4 MG CAP PO SCH (08:52)
[2018-06-25] MEDS: POLYETHYLENE GLYCOL 17 GM PKT PO SCH (08:53)
[2018-06-25] MEDS: CHOLECALCIFEROL 1000 UNIT TAB PO SCH (08:53)
[2018-06-25] MEDS: metFORMIN HCL 500 MG TAB PO SCH ×2 (08:53→16:54)
[2018-06-25] MEDS: WARFARIN SOD 7.5 MG TAB PO SCH (13:20)
[2018-06-25] MEDS: MAGNESIUM HYDROXIDE* 30ML UDCP PO PRN (19:37)
[2018-06-26 06:07] LABS: INR 2.06
[2018-06-26 07:50] VITALS: BP 141/69
[2018-06-26] MEDS: CHOLECALCIFEROL 1000 UNIT TAB PO SCH (08:45)
[2018-06-26] MEDS: TAMSULOSIN HCL 0.4 MG CAP PO SCH (08:45)
[2018-06-26] MEDS: DOCUSATE SODIUM 100 MG CAP PO SCH ×2 (08:45→20:17)
[2018-06-26] MEDS: metFORMIN HCL 500 MG TAB PO SCH ×2 (08:45→17:02)
[2018-06-26] MEDS: POLYETHYLENE GLYCOL 17 GM PKT PO SCH (08:46)
[2018-06-26] MEDS: WARFARIN SOD 5 MG TAB PO SCH (12:46)
--- NOTE | 2018-06-26 13:01 | NUR ---
Physical Therapy Impression Pt is doing well with functional mobility. He is showing progress with safety awareness and use of FWW during transfers. He is able to perform sit <> stands x 5 from low surface of couch on ECF, improved ability with each consecutive repetition. No instances of knee buckling or LOB during session. Pt on room air throughout, SpO2 WNL. Cont. with POC. Physical Therapy Goals Patient's Goals
--- NOTE | 2018-06-26 15:40 | Medical Nutrition Therapy ---
Nutrition Anthropometrics Height (Inches): 75.00 Height (Calculated Centimeters: 190.729203 Weight (Pounds): 283 Weight (Calculated Kilograms): 128.548 BMI: 35.4 Lawrence Nutrition Score: Adequate Lawrence Nutrition Risk Score: 18 Dietary Referral Nutrition Risk Factors: Special Diet Nutrition Risk Comment: needs education on ADA diet Physical Findings Physical Appearance: Obese BMI 30-39 Skin Appearance Skin Appearance: Edema Edema Location Modifier: Left Edema Location: Foot Type of Edema: Degree of Edema: 1+ Gastrointestinal Symptoms GI Symtoms: Tube Present: Bowel Sounds: Recent Bowel Pattern: Stool Characteristics: Nutrition/Food History No Significant Nutr. HX Nutritional Diagnosis Nutritional Risk Acuity 4: Good Appetite Past Medical History: T2DM, vit d deficiency, morbid obesity, HTN, hyperlipidemia, gastric banding, bilateral knee replacemenbt, a-fib Nutritional Acuity: 4-Low Nutrition Diagnosis: Nutr. Knowledge Deficit Nutrition Etiology: Inappropriate Food Choice Nutrition Problem/Etiology/Sym: Food and Nutrition Related Knowledge Deficit as related to inappropriate food choices AEB weight related comorbidities and verbalizes inaccurate or incomplete food/nutrition information. Energy Requirement: 2370 ([place] Jeor: IBW BW X 1.4) Protein Requirement: 71 (IBW Kg X .8) Diet Type: Diabetic Nutrition Intervention: Cont diet as ordered, Check glucose Drug: Warfarin Do Not Serve Any of the Follow: Broccoli, Brussel Sprouts, Spinach, [place] Lettuce, Cranberry Juice Nutrition Monitoring & Eval Nutrition Goals: Eat 50-100% Meal RD Patient Assessment Time: [address] Assessment Type: RD Assessment Patient Nutrition Acuity: 1-High Follow Up Date: Jul 03, 2018 Nutritional Comment: 06/21/18 Pt transferred to [facility] from Med/Surg. Orginally admitted for Hypoglycemia and UTI. Glu 119, Alb 3.3, Na 134. Class II obesity with BMI of 35.4. Metformin 1000 mg BID for diabetes control. Receiving Diabetes diet with 100% meal consumption on Med/Surg. Follow labs, intake, etc. -DRT 06/26/18 High AST/ALT, Low H/H, Glu 129, Alb 3.5. Continues to tolerate diet and consume 100% of meals. Follow intake, etc. -YASHIRA MCGILL Jun 26, 2018 15:40
[2018-06-26 15:50] VITALS: BP 116/67
[2018-06-27 05:59] LABS: INR 2.11
[2018-06-27 08:05] VITALS: BP 111/55
[2018-06-27] MEDS: TAMSULOSIN HCL 0.4 MG CAP PO SCH (08:27)
[2018-06-27] MEDS: metFORMIN HCL 500 MG TAB PO SCH ×2 (08:27→17:26)
[2018-06-27] MEDS: DOCUSATE SODIUM 100 MG CAP PO SCH ×2 (08:27→20:13)
[2018-06-27] MEDS: POLYETHYLENE GLYCOL 17 GM PKT PO SCH (08:28)
[2018-06-27] MEDS: MAGNESIUM HYDROXIDE* 30ML UDCP PO PRN (08:28)
[2018-06-27] MEDS: CHOLECALCIFEROL 1000 UNIT TAB PO SCH (08:28)
--- NOTE | 2018-06-27 12:16 | NUR ---
MDS completed with pt. C: 13, D: 00, E: no concerns, Q: referral made for pt to return to community with home health and delivered meals.
--- NOTE | 2018-06-27 12:26 | NUR ---
Occupational Therapy Impression SBA ambulation with RW [id number]. Independent toileting. Mod (I) bathtub transfer with use of grab bar. Pt reports similar set-up at home with grab bar and shower chair. SBA light meal prep with no AD. Pt utilizing countertops for UE support as he would at home. SpO2 84-86% with activity. Recovers to >90% with rest break and v/c's for breathing. Pt progressing well towards OT goals. Occupational Therapy Goals 1. Pt. to perform dressing activities with Mod I. 2. Pt. to perform showering activities with Min A. 3. Pt. to improve Pennie Index score by 2 points. 4. Pt. to perform toileting activities with Mod I. 5. Pt. to perform grooming activities with I. Patient's Goal
[2018-06-27] MEDS: WARFARIN SOD 5 MG TAB PO SCH (12:45)
--- NOTE | 2018-06-27 14:17 | NUR ---
Physical Therapy Impression PT instructed patient in use of SPC for ambulation in hallway as the patient reports that he will not be able to utilize a RW in his home d/t space restraints. Pt demonstrates increased path deviation and requires additional use of handrail in hallway in order to improve balance with use of cane. Pt fatigued and required standing rest break after each 100' ambulation bout but was motivated to practice with SPC. Rec that nursing staff continue to use RW, but plan to continue to practice with SPC with rehab staff. SpO2 87-88% on room air with mobility Physical Therapy Goals Late Entry for goals set with evjj on 06/21/18 1. Pt to be indep with bed mobility and supine to/from sit transfers 2. Pt to be modified indep with sit to/from stand with least restrictive device 3. Pt to tolerate ambulation x 300' for community mobility with least restrictive device. 4. Pt to be modified indep with up/down steps with least restrictive device to simulate entry to home. Patient's Goals
--- NOTE | 2018-06-27 14:58 | PT ECF NOTE ---
Type of Note: Initial Note Primary Medical Diagnosis: UTI, A-fib Physical Therapy Evaluation Date: 06-21-18 SUBJECTIVE: Prior Hospitalization: [facility] medical floor from 06-15-18 to 06-20-18. Prior Level of Function: Pt. was I with all ADL/IADL activities. Prior Living Status: Bi-level house; Alone Community Services: Independent Home Accessibility: Two story home, however, pt notes that he only uses main level. Equipment Owned: walking stick x2, shower chair Medical Complications/Past Medical History: Please refer to reports for details. Psychosocial Support: unknown Pain Scale (0-10): 07/06 OBJECTIVE: Strength: Generalized weakness with MMT within 4/5 range but fatigues easily ROM: (please note any abnormalities) WNL Sensation: (please note any abnormalities) No paresthesias reported Other Neuro findings: N/A Bed Mobility: SBA/CGA Assistive device: Transfers: CGA Assistive Device: Front wheeled walker Gait: Verbal cues, CGA; cues for rest breaks Assistive device: Front wheeled walker Stairs: Not yet addressed Assistive device: Timed Up and Go (>12 seconds indicated increased risk for falls): 36 seconds 10 meter walk test (0.6m/second cannot function independently): n/a Other Objective Measures: n/a ASSESSMENT: Pt demos generalized deconditioning and fatigues easily with activity. Pt would benefit from further rehab to address balance activities and progress to safety with least restrictive device. Pt notes that his prior level of function was with two walking sticks, as a walker is not conducive to his home environment. Pt resides alone and will need to be fully indep with basic ADL's and consider other possible living arrangements potentially. Problem List/Current Limitations: Decreased activity osman, Decreased strength, Decreased balance, Generalized weakness, Poor safety awareness Short Term Goals: 1. Pt to be indep with bed mobility and supine to/from sit transfers 2. Pt to be modified indep with sit to/from stand with least restrictive device 3. Pt to tolerate ambulation x 300' for community mobility with least restrictive device. 4. Pt to be modified indep with up/down steps with least restrictive device to simulate entry to home. Chcf Goals: Pt to return to most supportive and appropriate environment with indep at prior level of function. Patient Goals: To return home with indep Rehabilitation Prognosis: Good Barriers for Discharge: Pt's endurance and awareness of energy conservation techniques for safety when ambulating. PLAN: The patient will benefit from skilled physical therapy services 5 times per week for 2 weeks including: Therapeutic Exercise Therapeutic Activities, Transfer Training, Gait Training, Stair Training, ADL's, Safety Training, Pt/Caregiver Training, Bed Mobility Thank you for this referral. If you have any questions, concerns, or comments about this report or plan, please contact me at . h. Barbara Torres, PT, MPT, OMS MTDD
[2018-06-27 16:00] VITALS: BP 121/62
[2018-06-28 06:40] LABS: INR 2.03
[2018-06-28 07:50] VITALS: BP 132/67
[2018-06-28] MEDS: TAMSULOSIN HCL 0.4 MG CAP PO SCH (08:33)
[2018-06-28] MEDS: metFORMIN HCL 500 MG TAB PO SCH ×2 (08:33→17:13)
[2018-06-28] MEDS: CHOLECALCIFEROL 1000 UNIT TAB PO SCH (08:33)
[2018-06-28] MEDS: POLYETHYLENE GLYCOL 17 GM PKT PO SCH (08:33)
[2018-06-28] MEDS: DOCUSATE SODIUM 100 MG CAP PO SCH ×2 (08:33→20:44)
--- NOTE | 2018-06-28 12:36 | NUR ---
Occupational Therapy Impression CGA ambulation with cane [id number]. One loss of balance corrected by pt. (I) LB dressing. (I) toileting. Dynamic balance tasks in standing x10 minutes with support of cane. (I) squatting to retrieve items off floor. Pt reports typically using [employer] Tender and plans to do so at home. SpO2 84% with activity on room air. Increases to 90% with v/c's and rest break. Pt plans to obtain pulse ox for home use. Pt has met skilled OT goals. Plan for final visit tomorrow to address any further concerns. Occupational Therapy Goals 1. Pt. to perform dressing activities with Mod I. 2. Pt. to perform showering activities with Min A. 3. Pt. to improve Pennie Index score by 2 points. 4. Pt. to perform toileting activities with Mod I. 5. Pt. to perform grooming activities with I. Patient's Goal
--- NOTE | 2018-06-28 12:37 | NUR ---
OCCUPATIONAL THERAPY Dressing Assistance: Independent Dressing Aid Required: None Bathing Assistance: Mod (I) Bathing Equipment: Shower Chair Home Assessment: Not Completed-May benefit from home modification recommendations Feeding Assistance: Independent Feeding Specialized Equipment: None Toilet Use: Independent Verbalizes Needs: Yes Understands Precautions: Yes Cooperative: Yes Family Teaching: No Occupational Therapy Comment: Pt may benefit from OT services to continue improving endurance/strength and engagement in higher level IADLs (med management).
[2018-06-28] MEDS: WARFARIN SOD 5 MG TAB PO SCH (13:03)
--- NOTE | 2018-06-28 14:22 | Hospitalist Depart ---
Discharge Summary Reason for Hosp/Final Diag: (1) Hypoglycemia Status: Acute Hospital Course & Plan: He presented with feeling exceptionally weak over a couple of days prior to admission and had significant hypoglycemia. His insulin was stopped. He was continued on metformin 1000 mg po bid. Glucoses have all been under 140. He was transferred to [facility] for rehabilitation with physical and occupational therapy. (2) Pyuria Status: Acute Hospital Course & Plan: His urine showed pyuria, but his culture was negative. His WBC was normal and he was afebrile. Appeared to be asymptomatic bacteriuria. He was on oral levofloxacin, which was discontinued. (3) Urinary frequency Status: Acute Hospital Course & Plan: He was started on Flomax which did seem to help the urinary symptoms. (4) Essential hypertension Status: Chronic Hospital Course & Plan: He had been on chronic treatment with lisinopril and hydrochlorothiazide, which were both stopped. He was also taking diltiazem for a history of atrial fibrillation. This was also discontinued. His BP remained nicely controlled so his meds were not restarted. He will need to have ongoing monitoring as an outpatient. (5) History of atrial fibrillation Status: Chronic Hospital Course & Plan: He was in sinus rhythm by ECG on admission. He had been on chronic treatment with diltiazem and warfarin. The diltiazem was stopped. The warfarin was initially at 5 mg, 5 days a week and 2.5 mg, 2 days a week. His INR slowly decreased so his warfarin was increased to 5 mg, 5 days a week and 7.5 mg, 2 days a week. His INR stabilized around 2. He will need to follow up with Dr. Boris Abdi as an outpatient. (6) Elevated LFTs Status: Chronic Hospital Course & Plan: The patient was noted to have mild elevation of his LFTs during his stay. While on EC, he did not take any Tylenol. He will need ongoing monitoring of his LFTs as an outpatient. Departure Weight (Pounds): 280 Weight (Ounces): 3.2 Result Diagram: 06/25/18 0606/25/18 06 Item Value Date Time Prothromb Time International Ratio 1.90 06/24/18 0545 Prothromb Time International Ratio 1.87 06/25/18 0608 Prothromb Time International Ratio 2.06 06/26/18 0553 Prothromb Time International Ratio 2.11 06/27/18 0542 Prothromb Time International Ratio 2.03 06/28/18 0621 Condition: Improved Discharge: Home, Home Health PT/OT Follow Up For: PT For Strengthening, OT For ADL's Home Health RN Follow Up For: Nursing Assessment Time Spent: < 30 min Discharge Instructions Home Meds Active Scripts Insulin Regular, Human (NOVOLIN R) 100 Unit/1 Ml Vial, 21 UNIT SUBQ TID, #2 VIAL 6 Refills Inject 21 units approximately 30 minutes prior to each meal. Take three times daily. Prov:NEELA KISER MD 04/21/18 Nph, Human Insulin Isophane (NOVOLIN N) 100 Unit/1 Ml Vial, 148 UNIT SQ QDAY, #5 VIAL 6 Refills 86 Units sq q am, 62 Units sq q pm Prov:NEELA KISER MD 04/21/18 Lovastatin (LOVASTATIN) 20 Mg Tablet, 1 TAB PO QDAY, #90 TAB 3 Refills Prov:NEELA KISER MD 04/05/18 Lisinopril/Hydrochlorothiazide (LISINOPRIL-HCTZ 20-25 MG TAB) 1 Each Tablet, 0.5 TAB PO QAM, #45 TAB 3 Refills Prov:NEELA KISER MD 04/05/18 Diltiazem Hcl (DILTIAZEM 24HR ER) 180 Mg Cap.er.24h, 1 CAP PO QDAY, #90 CAP 3 Refills Prov:NEELA KISER MD 04/05/18 Metformin Hcl (METFORMIN HCL) 1,000 Mg Tablet, 1 TAB PO BID, #180 TAB 3 Refills Prov:NEELA KISER MD 04/05/18 Blood Sugar Diagnostic (GLUCOSE TEST STRIP) 1 Each Strip, 1 STRIP MC QDAY, #90 STRIP 4 Refills Prov:NEELA KISER MD 02/01/18 Syring W-Ndl,Disp,Insul,0.3ML (INSULIN SYRINGE) 1 Each Disp.syrin, 1 EACH SQ QDAY, #2 12 Refills Use twice daily with insulin injections. Patient needs 1cc syringes. 29-31 gauge acceptable. Prov:BORIS ABDI PHARMD 12/25/14 Reported Medications Warfarin Sodium (COUMADIN) 2.5 Mg Tablet, 2.5 MG PO DIRECTED PT. 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 Kiser or one of her associates in 1-2 weeks. Follow up with Dr. Boris Abdi in one week. INR to be drawn one week after discharge. Copies to: NEELA KISER MD; BORIS ABDI PHARMD ; [id number] Certification Face to Face Home Health Certification Institutional Provider conducted the [id number] encounter. Electronic Undersigning Physician Certifies Home Health. I certify that the patient has been under my care and that I had a [id number] encounter that meets the physician [id number] encounter requirements with this patient. This patient is home-bound due to safety issues and continues to require assistance with ADL's. I certify that based on my findings, that Nursing, Aides and the following Home Health services are medically necessary: PT, OT Medical Necessity: Nursing, Rehab Date Face to Face Conducted: Jun 28, 2018 SUMAN DE SANTIAGO MD Jun 28, 2018 14:22
--- NOTE | 2018-06-28 14:24 | ECF H&P BLANK ---
ECF H&P UPDATE Transfer Summary ([facility]/B) Problems: (1) Hypoglycemia Status: Acute Assessment & Plan: He presented with feeling exceptionally weak over a couple of days and had significant hypoglycemia. His usual doses of insulin have been held. Will continue metformin 500 mg po bid. Glucose is now in 130-140 range. Still needs to be more ambulatory and will push PT. Wants to go to [facility] for more rehab and strength. Med rec completed this morning and will be transferred to [facility] today. (2) Urinary tract infection Status: Acute Assessment & Plan: His urine showed pyuria, but his culture has been negative so far. His WBC was normal and he is afebrile. Appears to be asymptomatic bacteriuria. He was on oral levofloxacin, which has been stopped. (3) Urinary frequency Status: Acute Assessment & Plan: Flomax does seem to be helping the urinary symptoms. (4) Atrial fibrillation by electrocardiogram Status: Chronic Assessment & Plan: He was in sinus rhythm by ECG on admission. He is on chronic treatment with diltiazem and warfarin. The diltiazem is on hold. The warfarin is currently at 5 mg 5days a week and 2.5 mg 2 days a week. INR is slowly decreasing and is 1.55 this morning so will increase the coumadin to 5 mg daily and continue daily INR while on ECF. (5) Essential hypertension Status: Chronic Assessment & Plan: He is on chronic treatment with lisinopril and hydrochlorothiazide, which are both on hold. BP remains reasonable but will probably need to restart meds as he is more ambulatory. Will continue to follow BP carefully. Latest Vital Signs Vital Signs Date Time Temp Pulse Resp B/P (MAP) Pulse Ox O2 Delivery O2 Flow Rate FiO2 06/20/18 11:42 1.0 06/20/18 07:54 Nasal Cannula 06/20/18 07:31 97.7 65 12 134/91 (105) 96 06/16/18 01:00 32.0 Result Diagram: 06/16/18 0558 06/16/18 0558 Condition: Improved Time Spent: > 30 min Disposition: Inpatient Medications See med rec. Treatment Goals and Plan Patient requires mcc for further monitoring of glucose levels along with medication adjustments as required. Aggressive physical therapy for improvement in strength and conditioning. Also needs regular blood pressure evaluation since he is off his usual BP meds. Antihypertensives will be restarted as indicated by BP. Any change in condition is described below. Services Required: PT Problem Qualifiers (1) Urinary tract infection: Urinary tract infection type: acute cystitis Hematuria presence: without hematuria Qualified Codes: N30.00 - Acute cystitis without hematuria GURINDER MAJANO MDP Jun 20, 2018 11:56 <Electronically signed by GURINDER MAJANO> D/ [id number] ODALIS/ANDREW CC: SUMAN DE SANTIAGO MD Jun 28, 2018 14:23
--- NOTE | 2018-06-28 14:42 | NUR ---
Physical Therapy Impression Pt is continuing to progress well with his mobility and overall safety utilizing his SPC. He intermittently picks it up and ambulates without AD, though no change in gait quality is noted. Pt does have some difficulty with turns, but is able to self correct safely. Discussed the importance of asking for help when needed to ensure he does not over-exert himself and increase risk of falls with fatigue. Encouraged pt to have a friend get his groceries for the first couple of weeks until he is strong enough to do so on his own. Pt will have services which will increase pt's progress and optimize his safety at home. Pt is nearing goals and will be safe to D/C home at the end of the week. Physical Therapy Goals Late Entry for goals set with grey on 06/21/18 1. Pt to be indep with bed mobility and supine to/from sit transfers 2. Pt to be modified indep with sit to/from stand with least restrictive device 3. Pt to tolerate ambulation x 300' for community mobility with least restrictive device. 4. Pt to be modified indep with up/down steps with least restrictive device to simulate entry to home. Patient's Goals
--- NOTE | 2018-06-28 15:33 | Hospitalist Progress Note ---
Subjective Progress Notes Subjective The patient denies new complaints. He is feeling better and anxious to get home. Physical Exam Vital Signs Date Time Temp Pulse Resp B/P (MAP) Pulse Ox O2 Delivery O2 Flow Rate FiO2 06/28/18 09:00 92 Room Air 06/28/18 07:50 98.6 58 16 132/67 (88) 06/27/18 21:00 4.0 Intake and Output 06/28/18 07:00 Intake Total 840 ml Output Total 750 ml Balance 90 ml Intake Oral 840 ml Output Urine Total 750 ml # Voids 5 # Bowel Movements 1 General Appearance: Alert, Awake, No Acute Distress, Afebrile Neuro: No Gross deficits Eyes: PERRLA Cardiovascular: Regular Rate and Rhythm (With soft PORFIRIO.) Respiratory: Clear to Auscultation GI: Soft and Non-Tender Lymph: Cervical Nodes Benign Extremities: Warm, Perfused, Edema (Trace to 1+), Other (Chronic venous stasis changes.) Integumentary: Other (Chronic venous stasis changes.) Psych: Alert & Oriented X3, Appropriate Mood & Affect Result Diagram: 06/25/1860706/25/18607 Assessment and Plan Problems: (1) Hypoglycemia Status: Acute Assessment & Plan: He presented with feeling exceptionally weak over a couple of days prior to admission and had significant hypoglycemia. His insulin was stopped. Will continue metformin 500 mg po bid. Glucoses have all been under 140. Was transferred to [facility] for more rehab and strength. (2) Pyuria Assessment & Plan: His urine showed pyuria, but his culture has been negative so far. His WBC was normal and he is afebrile. Appears to be asymptomatic bacteriuria. He was on oral levofloxacin, which has been stopped. (3) Urinary frequency Status: Acute Assessment & Plan: Flomax does seem to be helping the urinary symptoms. (4) Atrial fibrillation by electrocardiogram Status: Chronic Assessment & Plan: He was in sinus rhythm by ECG on admission. He is on chronic treatment with diltiazem and warfarin. The diltiazem is on hold. The warfarin is initially at 5 mg 5days a week and 2.5 mg 2 days a week. INR slowly decreased so warfarin was increased to 5 mg daily. His INR has now stabilized around 2. (5) Essential hypertension Status: Chronic Assessment & Plan: He is on chronic treatment with lisinopril and hydrochlorothiazide, which are both on hold. He was also taking diltiazem as noted above. BP remains reasonable so meds have not been restarted. Will continue to follow BP carefully. Time Spent on Plan of Care: < 30 min SUMAN DE SANTIAGO MD Jun 28, 2018 15:33
[2018-06-28] MEDS ORDERED: POLY17PO11 PO (15:45)
[2018-06-28 18:31] VITALS: BP 136/70
[2018-06-29 06:22] LABS: INR 1.94
[2018-06-29 08:00] VITALS: BP 142/64
[2018-06-29] MEDS: metFORMIN HCL 500 MG TAB PO SCH ×2 (08:31→16:59)
[2018-06-29] MEDS: POLYETHYLENE GLYCOL 17 GM PKT PO SCH (08:31)
[2018-06-29] MEDS: DOCUSATE SODIUM 100 MG CAP PO SCH ×2 (08:31→20:37)
[2018-06-29] MEDS: CHOLECALCIFEROL 1000 UNIT TAB PO SCH (08:31)
[2018-06-29] MEDS: TAMSULOSIN HCL 0.4 MG CAP PO SCH (08:32)
--- NOTE | 2018-06-29 10:02 | NUR ---
Occupational Therapy Impression Pt. performed LB dressing with REESE and oral care activities with I, standing sink front. Pt. required SBA/CGA to ambulate in hallways with use of cane/guard rail in hallway. Pt. will d/c to home tomorrow with HH Care and assistance from friends for grocery shopping. Occupational Therapy Goals 1. Pt. to perform dressing activities with Mod I. 2. Pt. to perform showering activities with Min A. 3. Pt. to improve Pennie Index score by 2 points. 4. Pt. to perform toileting activities with Mod I. 5. Pt. to perform grooming activities with I. Patient's Goal
--- NOTE | 2018-06-29 10:06 | OT ECF NOTE ---
Type of Note: Discharge Note Primary Medical Diagnosis: UTI, A-fib Occupational Therapy Evaluation Date: 06-21-18 SUBJECTIVE: Prior Hospitalization: [facility] medical floor from 06-15-18 to 06-20-18. Prior Level of Function: Pt. was I with all ADL/IADL activities. Prior Living Status: Bi-level house Alone Community Services: Independent, Pt. will have assistance from friends to acquire groceries. Home Accessibility: Two story home Equipment Owned: walking stick x2, shower chair Medical Complications/Past Medical History: Please refer to reports for details. 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 Bathing: Assistive device: shower chair Bathing ability: Mod I Standardized Assessment: Pennie Index of Activities of Daily Living- Pt. scored a 13/20 on this index upon initial evaluation on 06-11-18. Pt.scored 17/20 on this index on 06-29-18. ASSESSMENT: Pt. is a 78 year old male who was admitted to [facility] medical floor on 06-15-18 following a fall at home. Pt. was diagnosed with a UTI and new onset A- fib. Pt. resides alone, 5 miles outside of [place], in a two story home that will not currently allow for a walker to fit in due to the house being so cluttered. Pt. is admitted to [facility] for continued rehab to increase independence in ADL as well as increase strength/ endurance with ambulation activities. Pt. is also O2 dependent during the day and will require education on how to safely manage O2 equipment during all activities. Problem List/Current Limitations: Pain Decreased activity osman Generalized weakness Short Term Goals: 1. Pt. to perform dressing activities with Mod I. Goal met. 2. Pt. to perform showering activities with Min A. Goal met. 3. Pt. to improve Pennie Index score by 2 points. Goal met. 4. Pt. to perform toileting activities with Mod I. Goal met. 5. Pt. to perform grooming activities with I. Goal met. Custodial Goals: Return home. Patient Goals: Return home Rehabilitation Prognosis: Fair Barriers to Discharge: Resides alone, advanced age PLAN: The patient will benefit from [facility] services to increase endurance/strength and address higher level IADL needs. Thank you for this referral. If you have any questions, concerns, or comments about this report or plan, please contact me at . Erinn Curry, OTR/L Occupational Therapist PAMELA
--- NOTE | 2018-06-29 10:33 | NUR ---
DC MDS completed with pt. C: 15, D: 00,, E: no concerns, Q: referrals already made for pt to return to community including HHS and home-delivered meals.
[2018-06-29] MEDS: WARFARIN SOD 7.5 MG TAB PO SCH (13:27)
--- NOTE | 2018-06-29 16:20 | NUR ---
Physical Therapy Impression Pt politely declining therapy this date due to fatigue. Will attempt again tomorrow to complete D/C TUG test and any further needs per pt request. Physical Therapy Goals Late Entry for goals set with grey on 06/21/18 1. Pt to be indep with bed mobility and supine to/from sit transfers 2. Pt to be modified indep with sit to/from stand with least restrictive device 3. Pt to tolerate ambulation x 300' for community mobility with least restrictive device. 4. Pt to be modified indep with up/down steps with least restrictive device to simulate entry to home. Patient's Goals
[2018-06-29 20:30] VITALS: BP 140/75
[2018-06-30 06:25] LABS: INR 1.84
[2018-06-30] MEDS ORDERED: TAMS0.4C70 PO (07:33)
[2018-06-30] MEDS ORDERED: WARF5TAB23 PO (07:35)
[2018-06-30 08:00] VITALS: BP 147/82
[2018-06-30] MEDS: POLYETHYLENE GLYCOL 17 GM PKT PO SCH (08:47)
[2018-06-30] MEDS: TAMSULOSIN HCL 0.4 MG CAP PO SCH (08:47)
[2018-06-30] MEDS: metFORMIN HCL 500 MG TAB PO SCH (08:47)
[2018-06-30] MEDS: CHOLECALCIFEROL 1000 UNIT TAB PO SCH (08:47)
[2018-06-30] MEDS: DOCUSATE SODIUM 100 MG CAP PO SCH (08:47)
--- NOTE | 2018-06-30 12:43 | Medical Nutrition Therapy ---
Nutritional Education Nutrition Education Topic: Diabetic Nutrition Learning Readiness: Interested Teaching Methods: Discussion, Handout Response to Teaching: Verbalize understanding, Reinforcement needed Teaching Recipient: Patient Nutrition Counseling: late entry for 06/29 @ 4:30 Pt requested menus and shopping guild. Provided 4 handouts with over 3 months menues and healthy shopping guild for diabetes. Reviewed menus with pt. Pt stated that was not what he wanted. He wanted a personlized menu of foods he would eat and prepare with a shopping guild that matched his intake. Was able to obtain 3-4 meals for each of breakfast, supper and snack ideas ( pt skips lunch) and put them into a 60gm CHO meal plan. Provided shopping list of these meals. Encouraged pt to come to the [facility]. If he keeps track of what he eats, we could do a monthly menu that fits his plan with a weekly shopping guilds. Pt accepted handout on [facility] but refused at this time. Nutrition Monitoring & Eval RD Patient Assessment Time: [address] Assessment Type: RD Assessment Patient Nutrition Acuity: 1-High Follow Up Date: Jul 03, 2018 Nutritional Comment: 06/21/18 Pt transferred to [facility] from Med/Surg. Orginally admitted for Hypoglycemia and UTI. Glu 119, Alb 3.3, Na 134. Class II obesity with BMI of 35.4. Metformin 1000 mg BID for diabetes control. Receiving Diabetes diet with 100% meal consumption on Med/Surg. Follow labs, intake, etc. -DRT 06/26/18 High AST/ALT, Low H/H, Glu 129, Alb 3.5. Continues to tolerate diet and consume 100% of meals. Follow intake, etc. -DRT 06/29 Spent 90 minutes reviewing menus and developing a personalized weekly meal plan and shopping guild. Pt refused to make appointment with [facility]. DAVIAN CLEMENS Jun 30, 2018 12:43
--- NOTE | 2018-07-01 12:20 | PT ECF NOTE ---
Type of Note: Discharge Summary Primary Medical Diagnosis: UTI, A-fib Physical Therapy Discharge Date: 06-30-18 SUBJECTIVE: Prior Hospitalization: [facility] medical floor from 06-15-18 to 06-20-18. Prior Level of Function: Pt. was I with all ADL/IADL activities. Prior Living Status: Bi-level house; Alone Community Services: Independent Home Accessibility: Two story home, however, pt notes that he only uses main level. Equipment Owned: walking stick x2, shower chair Medical Complications/Past Medical History: Please refer to reports for details. Psychosocial Support: unknown OBJECTIVE: Strength: R) LE Hip flexion: 4+/5 Knee flexion: 5/5 Knee extension: 5/5 DF: 5/5 L) LE Hip flexion: 4+/5 Knee flexion: 5/5 Knee extension: 5/5 DF: 5/5 ROM: (please note any abnormalities) WNL Sensation: (please note any abnormalities) No paresthesias reported Other Neuro findings: N/A Bed Mobility: SBA Transfers: SBA with SPC Gait: SBA with SPC x 175' Timed Up and Go (>12 seconds indicated increased risk for falls): 28.34 seconds 10 meter walk test (0.6m/second cannot function independently): n/a Other Objective Measures: n/a ASSESSMENT: Patient partially met all PT goals and was safe to d/c home with assistance from [facility]. Pt would have benefited from use of RW upon d/c but he reports that a walker will not fit in his home. He demonstrated adequate safety with use of SPC. Problem List/Current Limitations: Decreased activity osman, Decreased strength, Decreased balance, Generalized weakness, Poor safety awareness Short Term Goals: 1. Pt to be indep with bed mobility and supine to/from sit transfers (partially met) 2. Pt to be modified indep with sit to/from stand with least restrictive device (partially met) 3. Pt to tolerate ambulation x 300' for community mobility with least restrictive device. (met) 4. Pt to be modified indep with up/down steps with least restrictive device to simulate entry to home. (not attempted) [employer] Goals: Pt to return to most supportive and appropriate environment with indep at prior level of function. Patient Goals: To return home with indep (met) PLAN: The patient discharged home with [facility] services in place and assistance from neighbors as needed. Thank you for this referral. If you have any questions, concerns, or comments about this report or plan, please contact me at . Brittnee Ontiveros PT, DPT JOSED
== END 2018-06-30 10:15 | disposition home health service (06) | DRG 948 ==
LOC: ECF 14:55
PROVIDERS: ADMIT Internal Medicine; ATTEND Internal Medicine
PROC: 5A09357 Assistance with Respiratory Ventilation, Less than 24 Consecutive Hours, Continuous Positive Airway Pressure (ICD-10-PCS; principal; 2018-06-20)
DX: R53.1 Weakness (principal); R35.0 Frequency of micturition; I48.2 Chronic atrial fibrillation; I10 Essential (primary) hypertension; Z79.01 Long term (current) use of anticoagulants; Z87.891 Personal history of nicotine dependence; Z88.2 Allergy status to sulfonamides; Z88.0 Allergy status to penicillin; Z99.81 Dependence on supplemental oxygen; Z96.653 Presence of artificial knee joint, bilateral; Z79.84 Long term (current) use of oral hypoglycemic drugs; Z79.4 Long term (current) use of insulin
CPT/HCPCS: 36415; 36416; 82040; 82247; 82310; 82374; 82435; 82565; 82947; 82948; 84075; 84132; 84155; 84295; 84450; 84460; 84520; 85025; 85610; 97161; 97165

== ENCOUNTER → 2018-08-02 | Outpatient (CLI) | payer MEDICARE, OTHER ==
[2018-06-21 11:52] VITALS: BMI 35.4
[~2018-08-02] MED LIST changes: +POLY17PO11 PO; +TAMS0.4C70 PO; +TRIA15CR40 TP
== END ==
LOC: LAB 15:12
PROVIDERS: ATTEND Surgery
DX: L82.1 Other seborrheic keratosis (principal)
CPT/HCPCS: 88305

== ENCOUNTER → 2019-01-05 | Outpatient (CLI) | payer MEDICARE, OTHER ==
[2018-06-21 11:52] VITALS: BMI 35.4
== END ==
LOC: LAB 11:58
PROVIDERS: ATTEND Pharmacist Pharmacotherapy
DX: E11.65 Type 2 diabetes mellitus with hyperglycemia (principal)
CPT/HCPCS: 36415; 83036